=== PATIENT | male | born 1985 | race Caucasian/White ===

== ENCOUNTER 2022-05-05 20:04 | Emergency (ER) | payer SELFPAY ==
[~2022-05-05] VITALS: Ht 160 cm; Wt 74.8 kg
[2022-05-05 20:04] VITALS: BP 147/93
--- NOTE | 2022-05-05 20:04 | NUR ---
TO [facility], BIB [facility] FOR [facility]BOOK
--- NOTE | 2022-05-05 21:15 | NUR ---
Dr. Antonio examining patient.
[2022-05-05 21:34] VITALS: BP 142/88
--- NOTE | 2022-05-05 21:34 | NUR ---
Patient discharged with v/s stable. Written and verbal after care instructions given and explained. Patient verbalized understanding. Police with in custody. All questions addressed prior to discharge. Advised to follow up with [facility].
== END 2022-05-05 21:34 ==
LOC: MED 20:04
DX: Z02.89 Encounter for other administrative examinations (principal); I10 Essential (primary) hypertension; V89.2XXA Person injured in unspecified motor-vehicle accident, traffic, initial encounter; Y93.89 Activity, other specified; Y92.410 Unspecified street and highway as the place of occurrence of the external cause; Y99.8 Other external cause status
CPT/HCPCS: 99283